=== PATIENT | male | born 2000 | race Caucasian/White ===

== ENCOUNTER 2023-02-19 15:42 | Inpatient (IN) | payer MEDICAID, OTHER ==
--- NOTE | 2023-02-19 16:09 | ED ---
Psych HPI - General Source: patient, family, RN notes reviewed <Alyse Cook - Last Filed: 02/19/23 16:06> <Shravan Soto - Last Filed: 02/20/23 00:30> - General Source: patient, family, RN notes reviewed Mode of arrival: ambulatory Limitations: no limitations <Annabel Michael - Last Filed: 02/20/23 01:05> - General Chief Complaint: Psychiatric Symptoms Stated Complaint: mental health Time Seen by Provider: 02/19/23 16:07 - History of Present Illness Initial Comments: Patient is a 22-year-old male presenting to the ER with chief complaint of mental health evaluation. Patient denies any current SI/HI. Patient denies any alcohol or drug use today. Patient denies any other complaints at this time. (Alyse Cook) This is a 22-year-old male who presents to the emergency department for psychiatric evaluation. Patient has been experiencing hallucinations and thinks that people are in his head and trying to talk to him through his phone and communicate via text message. His mother provides the majority of the inform ation due to the patient being uncooperative and trying to communicate with internal stimuli. His mom states that he has been going downhill for about a month. She notes that they were recently evicted and are now living with his aunt and uncle, who are going through a divorce. He has not been eating or sleeping over the last few days either. He stopped taking his medication in July of this year. He does currently follow with [facility]. Denies any suicidal or homicidal ideations. Also denies any substance use. (Annabel Michael) - Related Data Home Medications Medication Instructions Recorded Confirmed Melatonin 7 mg PO HS 02/19/23 02/19/23 Allergies Allergy/AdvReac Type Severity Reaction Status Date / Time No Known Allergies Allergy Verified 02/19/23 19:38 Review of Systems ROS Other: All systems not noted in ROS Statement are negative. <Alyse Cook - Last Filed: 02/19/23 16:06> ROS Other: All systems not noted in ROS Statement are negative. <Shravan Soto - Last Filed: 02/20/23 00:30> ROS Other: All systems not noted in ROS Statement are negative. <Annabel Michael - Last Filed: 02/20/23 01:05> ROS Statement: Those systems with pertinent positive or pertinent negative responses have been documented in the HPI. Past Medical History Past Medical History: Asthma History of Any Multi-Drug Resistant Organisms: None Reported Past Surgical History: No Surgical Hx Reported Past Psychological History: No Psychological Hx Reported Smoking Status: Never smoker Past Alcohol Use History: None Reported Past Drug Use History: None Reported <Alyse Cook - Last Filed: 02/19/23 16:06> General Exam <Alyse Cook - Last Filed: 02/19/23 16:06> Limitations: no limitations General appearance: alert, in no apparent distress Head exam: Present: atraumatic, normocephalic, normal inspection Respiratory exam: Present: normal lung sounds bilaterally. Absent: respiratory distress, wheezes, rales, rhonchi, stridor Cardiovascular Exam: Present: regular rate, normal rhythm, normal heart sounds. Absent: systolic murmur, diastolic murmur, rubs, gallop, clicks Neurological exam: Present: alert, oriented X3, CN II-XII intact Psychiatric exam: Absent: homicidal ideation, suicidal ideation Expanded Focused psych exam: Present: internal stimuli Skin exam: Present: warm, dry, intact, normal color. Absent: rash <Annabel Michael - Last Filed: 02/20/23 01:05> - General Exam Comments Initial Comments: Visual Physical Exam Vital signs reviewed General: Well-appearing, nontoxic, no acute distress. Head: Normocephalic, atraumatic Eyes: PERRLA, EOMI ENT: Airway patent Chest: Nonlabored breathing Skin: No visual rash, normal skin tone Neuro: Alert and oriented 3 Musculoskeletal: No gross abnormalities (Alyse Cook) Course Vital Signs 02/19/23 16:10 Temperature 98.2 F Pulse Rate 107 H Respiratory 18 Rate Blood Pressure 155/102 O2 Sat by Pulse 98 Oximetry Medical Decision Making <Alyse Cook - Last Filed: 02/19/23 16:06> <Shravan Soto - Last Filed: 02/20/23 00:30> <Annabel Michael - Last Filed: 02/20/23 01:05> - Medical Decision Making I performed the quick note portion of the exam. Electronically signed by Alyse Cook PA-C (Alyse Cook) Patient reevaluated by myself. Patient amiss to having racing thoughts and difficulty sleeping. Decreased oral intake. Patient is having hallucinations. Positive clinical certificate completed. (Shravan Soto) This is a 22-year-old male who presents to the emergency department for psychiatric evaluation. Was pt. sent in by a medical professional or institution? @ -No Did you speak to anyone other than the patient for history? @ -His mother provided the majority of the information. Did you review nursing and triage notes? @ -Yes, and I agree, it is accurate with regards to the patient's symptoms. Were old charts reviewed? @ -No Differential Diagnosis? @ -Differential Mental Health Depression, anxiety, bipolar, psychosis, schizophrenia, borderline personality, situational depression, adjustment disorder, behavioral disorder, brain tumor, malingering, substance abuse, encephalopathy, medication reaction, dementia, hypothyroidism, degenerative neurologic disorder, lupus.... This is not meant to be all-inclusive list EKG interpreted by me (3pts min.)? @ -Not obtained X-rays interpreted by me (1pt min.)? @ -Not obtained CT interpreted by me (1pt min.)? @ -Not obtained U/S interpreted by me (1pt. min.)? @ -Not obtained What testing was considered but not performed? (CT, X-rays, U/S, labs)? Why? @ -None What meds were considered but not given? Why? @ -None Did you discuss the management of the patient with other professionals? @ -Yes, Silva with [facility], who advised that the patient meets inpatient psychiatric admission criteria and will be admitted to for psychiatric management. Did you reconcile home meds? @ -No Was smoking cessation discussed for >3mins.? @ -No Was critical care preformed (if so, how long)? @ -No Were there social determinants of health that impacted care today? How? (Homelessness, low income, unemployed, alcoholism, drug addiction, transportation, low edu. Level, literacy, decrease access to med. care, correction, rehab)? @ -No Was there de-escalation of care discussed even if they declined? (Discuss DNR or withdrawal of care, Hospice)? @ -No What co-morbidities impacted this encounter? (DM, HTN, Smoking, COPD, CAD, Cancer, CVA, Hep., AIDS, mental health diagnosis, sleep apnea, morbid obesity)? @ -Mental health diagnosis Was patient admitted / discharged? @ -Admitted. Patient's BAT was 0.0 and he was cleared for [facility] evaluation. [facility] advised that the patient meets admission criteria due to the hallucinations and not eating or sleeping, and he will be admitted to at this facility. I am in agreement with this plan based on the patient's presentation. Patient admitted to on an involuntary basis. Patient was petitioned by his mother and clinical certificate was completed by ED attending, Dr. Soto. Undiagnosed new problem with uncertain prognosis? @ -None Drug Therapy requiring intensive monitoring for toxicity (Heparin, Nitro, Insulin, Cardizem)? @ -None Were any procedures done? @ -None Diagnosis/symptom? @ -Hallucinations, poor appetite, insomnia Acute, or Chronic, or Acute on Chronic? @ -Acute Uncomplicated (without systemic symptoms) or Complicated (systemic symptoms)? @ -Uncomplicated Side effects of treatment? @ -None Exacerbation, Progression, or Severe Exacerbation] @ -Not applicable Poses a threat to life or bodily function? @ -Yes This case was discussed in detail with the attending ED physician, Dr. Soto. Presentation, findings, and treatment plan discussed in detail as well. (Annabel Michael) - Lab Data Lab Results 02/19/23 Range/Units 23:13 SARS-CoV-2 (PCR) Not Detected (Not Detectd) Disposition <Alyse Cook - Last Filed: 02/19/23 16:06> Is patient prescribed a controlled substance at d/c from ED?: No <Shravan Soto - Last Filed: 02/20/23 00:30> <Annabel Michael - Last Filed: 02/20/23 01:05> Clinical Impression: Acute psychosis Disposition: TRANSFER TO PSYCH HOSP/UNIT
[2023-02-20] MEDS ORDERED: MAGNESIUM HYDROXIDE 2,400 MG/30 ML CUP PO PRN (00:02)
[2023-02-20] MEDS ORDERED: LORazepam 2 MG/ML INJ IM PRN (00:02)
[2023-02-20] MEDS ORDERED: HALOPERIDOL LACTATE 5 MG/ML 1 ML VIAL IM PRN (00:02)
[2023-02-20] MEDS ORDERED: MAG HYDROX/AL HYDROX/SIMETH 30 ML CUP PO PRN (00:02)
[2023-02-20] MEDS ORDERED: QUEtiapine 50 MG TAB PO PRN (00:07)
[2023-02-20] MEDS: haloperidoL 5 MG TAB PO PRN ×2 (01:05→22:10)
[2023-02-20] MEDS: LORazepam 1 MG TAB PO PRN (01:05)
[2023-02-20] MEDS ORDERED: PALIPERIDONE 3 MG TAB.ER.24 PO STA (11:07)
--- NOTE | 2023-02-20 11:19 | P.HP ---
Psychiatric H&P - . H&P Date: 02/20/23 History & Physical: Allergies Allergy/AdvReac Type Severity Reaction Status Date / Time No Known Allergies Allergy Verified 02/20/23 02:07 Vital Signs Temp 97.8 F 02/20/23 00:40 Pulse 113 H 02/20/23 00:40 Resp 18 02/20/23 00:40 BP 172/96 02/20/23 00:40 Pulse Ox 97 02/20/23 00:40 FiO2 Intake & Output 02/19/23 02/20/23 02/20/23 18:59 06:59 18:59 Weight 149.685 kg 138.2 kg Laboratory Last Values SARS-CoV-2 (PCR) Not Detected (Not Detectd) 02/19/23 23:13 02/20/23 08:58 IDENTIFYING DATA: Patient is a 22-year-old male, lives at home with his mother. HPI: Patient presented to the hospital ED on 02/19. As per ED note "This is a 22-year-old male who presents to the emergency department for psychiatric evaluation. Patient has been experiencing hallucinations and thinks that people are in his head and trying to talk to him through his phone and communicate via text message. His mother provides the majority of the information due to the patient being uncooperative and trying to communicate with internal stimuli." As per [facility] note "pt has been struggling with significant stressors at home lately. They were evicted recently and have moved in with pt's aunt and uncle. Per Cheryle, the couple that they are living with are currently going through a divorce and have been yelling; Cheryle reports that she has seen worsening of symptoms when pt's aunt and uncle argue likely as a result of poor home situation when pt was younger with his mother and father. pt then quit his job because he believed that he was unable to get to work despite there being no indication that he was unable to get transportation. Most of the money that pt had saved from this job he needed to spend on vet bills trying to get his dog better, but the dog ultimately . pt was "really bad" this past weekend, but Cheryle notes that pt has been going steadily downhill for about a month. pt has not been eating much; pt apparently has eaten a single chicken wing in the past 2 days. pt will apparently make a plate, but then forgets to eat and "then can't remember what hunger is." pt has also not slept very much; per Cheryle, pt has slept a total of maybe 10 hours since night." Information was given by patients mother, as patient was unable to interact with nurse." Upon interview today, patient was responding to internal stimuli was seen touching the ruiz and talking to himself, appears distracted, and not able to give answers at to who he was, the date, or where he was. Patient denies any suicidal or homicidal ideations intent or plan. He was biza rre, disorganized in thought process, poor hygiene and grooming. poor insight. Patient was petitioned by his mother for concerns of having "multiple personalities" and acting bizarre at home. At this time patient denies any auditory or visual hallucinations. Patient denies any flight of ideas racing thoughts and increased in goal directed behavior. UDS was negative. PAST PSYCHIATRIC HISTORY: Patient was last discharged from [facility] 06/20/21, on Abilify 20 mg daily for psychosis/mood stabilization, trazodone 100 mg daily at bedtime when necessary for insomnia/mood. Was going to [facility], last seen 02/2022, by STRATEGIC PLANNING ANALYST, was on abilify and prozasin. PMH:as per ED note ALLERGIES: as per EMR CHEMICAL DEPENDENCY HISTORY: as per HPI FAMILY PSYCHIATRIC/SUBSTANCE USE HISTORY: family history of depression and schizophrenia SOCIAL HISTORY: I could not gather any history from him MENTAL STATUS EXAM: General Appearance: Patient appears to be stated age is alert, reacting to internal stimuli, attempts to cooperate. Patient appears to have poor hygiene and grooming. Behavior: Patient is responding to internal stimuli, bizarre Speech: Patient's speech is hesitant and disorganized. Mood/Affect: Patient reports their mood is ok, patient is confused, affect is congruent and constricted. Suicidality/Homicidality: Patient denies having any homicidal ideation intent or plan. Denies any suicidal ideations intent or plan Perceptions: Patient responding to internal stimuli Though content/process: There is evidence of any delusional thought content and thought process disorganized/thought blocking Memory and concentration: AOX0, patient of poor attention span Judgment and insight: poor STRENGTHS/WEAKNESSES: strength is that patient is has family support Weakness is that patient has poor judgment/insight and is impulsive INTELLECT: below average IMPRESSIONS: schizophrenia PLAN: -Patient is admitted under involuntary status to [facility] for stabilization of psychiatric symptoms and safety. Patient has not signed adult voluntary form or medication consent and is placed in patient's chart. A second certification was completed and along with petition will be filed for court. -Medications : Will start patient on Invega 3mg qhs for psychosis, trazadone 50mg qhs prn for sleep -Ativan [and Haldol] PRN for agitation/aggression -Patient was informed of the risks, benefits and side effects of the medication and patient verbally consented to taking the medications. Patient signed med consent form and was placed in chart. -Internal Medicine consult to perform medical evaluation and physical. -NRT - nonsmoker -SW on board for discharge planning. Encourage patient to participate in groups to work on coping skills. Will await deferral and court date. 02/20/23 09:02 02/20/23 11:03 02/20/23 11:16
[2023-02-20] MEDS: BISOPROLOL-HCTZ 5-6.25 MG 1 EACH TAB PO SCH (13:24)
--- NOTE | 2023-02-20 13:54 | P.HPIM ---
History of Present Illness H&P Date: 02/20/23 Chief Complaint: Hallucinations This is a 22-year-old gentleman admitted with hallucinations, patient with history of schizophrenia and multiple other medical issues. Denies chest pain, palpitations or shortness of breath. Denies illicit drug use. Questioned about THC use, responded with "only through the phone ". Hypertensive mild tachycardia. Denies nausea vomiting or diarrhea. Denies chest pain. Denies any pain. Ice lightheadedness, dizziness or focal deficits. Labs pending. Review of Systems ROS Statement: Those systems with pertinent positive or pertinent negative responses have been documented in the HPI. ROS Other: All systems not noted in ROS Statement are negative. Past Medical History Past Medical History: Asthma History of Any Multi-Drug Resistant Organisms: None Reported Past Surgical History: No Surgical Hx Reported Past Psychological History: No Psychological Hx Reported Smoking Status: Never smoker Past Alcohol Use History: None Reported Past Drug Use History: None Reported Medications and Allergies Home Medications Medication Instructions Recorded Confirmed Type Melatonin 7 mg PO HS 02/19/23 02/19/23 History Allergies Allergy/AdvReac Type Severity Reaction Status Date / Time No Known Allergies Allergy Verified 02/20/23 02:07 Physical Exam Vitals: Vital Signs Temp Pulse Pulse Resp BP BP Pulse Ox 02/20/23 00:40 97.8 F 113 H 18 172/96 97 02/19/23 16:10 98.2 F 107 H 18 155/102 98 Intake and Output 02/19/23 02/20/23 02/20/23 22:59 06:59 14:59 Other: Weight 149.685 kg 138.2 kg GENERAL: Unkept in regards to bathing,nails,obese ,no acute distress. HEAD: Atraumatic, normocephalic. EYES: Pupils equal round and reactive to light, extraocular movements intact, sclera anicteric, conjunctiva are normal. ENT:nares patent, oropharynx clear without exudates. Moist mucous membranes. NECK: Normal range of motion, supple without lymphadenopathy or JVD, no thyromegaly LUNGS: Breath sounds clear to auscultation bilaterally and equal. No wheezes rales or rhonchi. HEART: Regular rate and rhythm without murmurs, rubs or gallops.S1S2 Normal ABDOMEN: Soft, nontender, normoactive bowel sounds. No guarding, no rebound. No masses appreciated. EXTREMITIES: No pitting or edema. No clubbing or cyanosis. NEUROLOGICAL: Cranial nerves II through XII grossly intact. Normal speech, normal gait. He is awake alert and oriented 2-3. PSYCH: Currently calm, cooperative ,sometimes speaking nonsense to answer questions. SKIN: Warm, Dry, normal turgor, no rashes noted. Assessment and Plan Assessment: Schizophrenia Hypertension, in a patient with family history of, not currently on any medications except for melatonin Morbid obesity, BMI 40 Plan: Continue on current medication regime ,monitoring and symptomatic treatment. Ziac ordered for hypertension. Close monitoring of blood pressures. Labs pending. PPI ordered for GI prophylaxis. The impression and plan of care has been dictated as directed. : I performed a history and examination of this patient, discussed the same with the dictator. I agree with the dictator's note ,documented as a scribe. Any additional findings or plans will be noted.
[2023-02-20] MEDS: PANTOPRAZOLE 40 MG TABLET PO SCH (14:50)
[2023-02-20] MEDS ORDERED: PALIPERIDONE 3 MG TAB.ER.24 PO SCH (21:00)
[2023-02-20] MEDS: traZODone HCL 50 MG TAB PO PRN (22:10)
[2023-02-21] MEDS: BISOPROLOL-HCTZ 5-6.25 MG 1 EACH TAB PO SCH (08:38)
[2023-02-21] MEDS: PANTOPRAZOLE 40 MG TABLET PO SCH (08:39)
[2023-02-21] MEDS: haloperidoL 5 MG TAB PO PRN ×2 (10:19→23:53)
[2023-02-21] MEDS: LORazepam 1 MG TAB PO PRN ×2 (10:19→23:52)
--- NOTE | 2023-02-21 11:25 | P.PN ---
Progress Note - Text Progress Note Date: 02/21/23 Interval History: Patient was seen wandering the hallways and was directable and agreeable to speak with news writer in the office. Patient is very bizarre during the interview, states that tomorrow he will be someone else, and that everyone is different people. and states "he feels nothing". Patient is very disorganized in his thought process. Patient appears to be responding to internal stimuli, looking around the room, and talking to himself about how everything is different. Patient states that he has "blackouts" and the voices in his head are real. At this time patient denies any suicidal or homical ideations, intent or plan. Patient endorses auditory, visual hallucinations and endorses paranoia and delusions. Patient denies any side effects from the medications and has been compliant with meds. MENTAL STATUS EXAM: General Appearance: Patient appears to be stated age is alert, reacting to internal stimuli, attempts to cooperate. Tall, disheveled, wearing a hospital gown. Has facial hair, and unkempt nails. Patient appears to have poor hygiene and grooming. Behavior: Patient is responding to internal stimuli, bizarre Speech: Patient's speech is hesitant, tangential and disorganized. Mood/Affect: Patient reports their mood is ok, patient is confused, affect is congruent and constricted. Suicidality/Homicidality: Patient denies having any homicidal ideation intent or plan. Denies any suicidal ideations intent or plan Perceptions: Patient responding to internal stimuli Though content/process: There is evidence of delusional thought content and thought process disorganized/thought blocking Memory and concentration: AOX3, patient of poor attention span Judgment and insight: poor IMPRESSIONS: schizophrenia PLAN: -Patient is admitted under involuntary status to [facility] for stabilization of psychiatric symptoms and safety. Patient has not signed adult voluntary form or medication consent and is placed in patient's chart. -Medications : Increase Invega 6mg qhs for psychosis, trazadone 50mg qhs prn for sleep -Ativan [and Haldol] PRN for agitation/aggression -NRT - nonsmoker -SW on board for discharge planning. Encourage patient to participate in groups to work on coping skills. Will await deferral and court date.
[2023-02-21 13:28] LABS: Basophils % (A) 1 %; Eosinophils # (A) 0.1 k/uL (0-0.7); Eosinophils % (A) 2 %; HCT 44.4 % (39.0-53.0); HGB 14.8 gm/dL (13.0-17.5); Lymphocytes % (A) 29 %; MCH 28.9 pg (25.0-35.0); MCHC 33.3 g/dL (31.0-37.0); MCV 86.9 fL (80.0-100.0); Mean Platelet Volume 7.8; Monocytes # (A) 0.4 k/uL (0-1.0); Monocytes % (A) 6 %; Neutrophils # (A) 4.3 k/uL (1.3-7.7); Neutrophils % (A) 61 %; Platelet Count 285 k/uL (150-450); RBC 5.11 m/uL (4.30-5.90); RDW 13.7 % (11.5-15.5); WBC 7.1 k/uL (3.8-10.6)
[2023-02-21 13:40] LABS: ALT 63 U/L (4-49); AST 35 U/L (17-59); African American GFR (CKD) >90 (>60 ml/min/1.73 sqM); Albumin 4.6 g/dL (3.5-5.0); Alkaline Phosphatase 74 U/L (38-126); Anion Gap 15 mmol/L; Blood Urea Nitrogen 13 mg/dL (9-20); Calcium 9.4 mg/dL (8.4-10.2); Carbon Dioxide 24 mmol/L (22-30); Chloride 101 mmol/L (98-107); Glucose 103 mg/dL (74-99); Non-African American GFR(CKD) >90 (>60 ml/min/1.73 sqM); Potassium 3.6 mmol/L (3.5-5.1); Sodium 140 mmol/L (137-145); Total Bilirubin 0.8 mg/dL (0.2-1.3); Total Protein 7.7 g/dL (6.3-8.2)
[2023-02-21] MEDS: IBUPROFEN 600 MG TAB PO PRN (17:54)
[2023-02-21] MEDS: PALIPERIDONE 6 MG TAB.ER.24 PO SCH (20:12)
[2023-02-21] MEDS: traZODone HCL 50 MG TAB PO PRN (20:48)
[2023-02-21 21:40] LABS: Chol/HDL Ratio 4.74 Ratio; LDL Cholesterol,Calculated 83.1 mg/dL (0.0-131.0); VLDL Calculation 18.72 mg/dL (5.00-40.00)
[2023-02-22] MEDS: BISOPROLOL-HCTZ 5-6.25 MG 1 EACH TAB PO SCH (08:06)
[2023-02-22] MEDS: PANTOPRAZOLE 40 MG TABLET PO SCH (08:06)
[2023-02-22] MEDS: IBUPROFEN 600 MG TAB PO PRN (08:06)
--- NOTE | 2023-02-22 09:47 | P.PN ---
Progress Note - Text Progress Note Date: 02/22/23 Interval History: Patient was seen wandering the hallways and was directable and agreeable to speak with copy writer in the office. Patient seems much clearer today, and states that 'everything is starting to make sense". Patient states that he slept well last night. Patient is going to groups. Patient continues to be very disorganized in his thought process. Patient states his mood and anxiety are 'completely fine'. Patient also states that he's seeing his alternate persona lities, and he need to undo what they did, talking about his past traumas and 'stuff'. At this time patient denies any suicidal or homical ideations, intent or plan. Patient endorses auditory, visual hallucinations and endorses paranoia and delusions. Patient denies any side effects from the medications and has been compliant with meds. MENTAL STATUS EXAM: General Appearance: Patient appears to be stated age is alert, reacting to internal stimuli, attempts to cooperate. Tall, overweigh, dressed in street clothes.. Has facial hair, and unkempt nails. Patient appears to have improving hygiene and grooming.mildly improving. Behavior: Patient is rambling, bizarre, pleasant. Speech: Patient's speech is hesitant, tangential and disorganized. Mood/Affect: Patient reports their mood is ok, patient is confused, affect is congruent and constricted. Suicidality/Homicidality: Patient denies having any homicidal ideation intent or plan. Denies any suicidal ideations intent or plan Perceptions: Patient responding to internal stimuli Though content/process: There is evidence of delusional thought content and thought process disorganized/thought blocking Memory and concentration: AOX3, patient of poor attention span Judgment and insight: poor, improving mildly IMPRESSIONS: schizophrenia PLAN: -Patient is admitted under involuntary status to [facility] for stabilization of psychiatric symptoms and safety. Patient has not signed adult voluntary form or medication consent and is placed in patient's chart. -Medications : increase Invega 6mg qhs + 3mg qam for psychosis, increase trazadone 100mg qhs scheduled for sleep -Ativan [and Haldol] PRN for agitation/aggression -NRT - nonsmoker -SW on board for discharge planning. Encourage patient to participate in groups to work on coping skills. Will await deferral and court date.
[2023-02-22] MEDS: PALIPERIDONE 6 MG TAB.ER.24 PO SCH (20:10)
[2023-02-22] MEDS ORDERED: traZODone HCL 100 MG TAB PO SCH (21:00)
[2023-02-22] MEDS: haloperidoL 5 MG TAB PO PRN (21:57)
[2023-02-22] MEDS: ALBUTEROL INHALER 60 PUFF/8 GM INHALER (MHU) INHALATION PRN (22:58)
[2023-02-23] MEDS: LORazepam 1 MG TAB PO PRN (02:42)
[2023-02-23] MEDS: IBUPROFEN 600 MG TAB PO PRN (02:42)
[2023-02-23] MEDS: PANTOPRAZOLE 40 MG TABLET PO SCH (08:42)
[2023-02-23] MEDS: BISOPROLOL-HCTZ 5-6.25 MG 1 EACH TAB PO SCH (08:43)
[2023-02-23] MEDS: haloperidoL 5 MG TAB PO PRN (08:45)
[2023-02-23] MEDS ORDERED: PALIPERIDONE 3 MG TAB.ER.24 PO SCH (09:00)
--- NOTE | 2023-02-23 11:15 | P.PN ---
Progress Note - Text Progress Note Date: 02/23/23 Interval History: Patient was seen wandering the hallways and was directable and agreeable to speak with manual writer in the office. Patient claims that he's doing better, and he's trying to make sense of his brain and mental health. Patient states that he needed extra medication to go to sleep last night, due to racing thoughts.. He states that he's seeing people "walk in and out" but is vague as to who. Patient continues to be bizarre, and his mood is 'null'. Patient is going to groups. Patient continues to be very disorganized in his thought process. Patient deferred with his civil rights attorney on 02/22/23. At this time patient denies any suicidal or homical ideations, intent or plan. Patient admits to auditory, visual hallucinations and endorses paranoia and delusions. Patient denies any side effects from the medications and has been compliant with meds. MENTAL STATUS EXAM: General Appearance: Patient appears to be stated age is alert, reacting to internal stimuli, attempts to cooperate. Tall, overweigh, dressed in street clothes.. Has facial hair, and unkempt nails. Patient appears to have improving hygiene and grooming.mildly improving. Behavior: Patient is rambling, bizarre, pleasant. Speech: Patient's speech is hesitant, tangential and disorganized. Mood/Affect: Patient reports their mood is null, patient is confused, affect is congruent and constricted. Suicidality/Homicidality: Patient denies having any homicidal ideation intent or plan. Denies any suicidal ideations intent or plan Perceptions: Patient is confused. Delusional Though content/process: There is evidence of delusional thought content and thought process disorganized/thought blocking Memory and concentration: AOX3, patient of poor attention span Judgment and insight: poor, improving mildly IMPRESSIONS: schizophrenia PLAN: -Patient is admitted under involuntary status to [facility] for stabilization of psychiatric symptoms and safety. Patient has not signed adult voluntary form or medication consent and is placed in patient's chart. -Medications : increase Invega 9mg qhs for psychosis, increase trazadone 150mg qhs scheduled for sleep -Ativan and Haldol PRN for agitation/aggression -NRT - nonsmoker -SW on board for discharge planning. Encourage patient to participate in groups to work on coping skills. Deferred with his civil rights attorney on 02/22/23.
[2023-02-23] MEDS: PALIPERIDONE 3 MG TAB.ER.24 PO SCH (20:41)
[2023-02-23] MEDS: traZODone HCL 50 MG TAB PO SCH (20:42)
[2023-02-23] MEDS ORDERED: traZODone HCL 100 MG TAB PO SCH (21:00)
[2023-02-24] MEDS: ACETAMINOPHEN TAB 325 MG TAB PO PRN (01:10)
[2023-02-24] MEDS: BISOPROLOL-HCTZ 5-6.25 MG 1 EACH TAB PO SCH (08:52)
[2023-02-24] MEDS: PANTOPRAZOLE 40 MG TABLET PO SCH (08:52)
[2023-02-24] MEDS: haloperidoL 5 MG TAB PO PRN ×2 (09:57→21:10)
--- NOTE | 2023-02-24 13:32 | P.PN ---
Progress Note - Text Progress Note Date: 02/24/23 Interval History: The patient was seen today as coverage for Dr. Oliva. Their chart was reviewed, and the case was discussed with the nursing staff. The patient reports poor sleep and fair appetite. The patient has not been participating in groups and other unit activities. The patient has been taking their psychiatric medications and denies side effects but he presents confused. He states that "I feel I am on the wrong medications". The patient was not able to engage in any productive conversation or provide any specific symptoms. He was talking about "I have multiple personality" but he didn't elaborate about that. The patient reports have been seeing people are not existing "I see this person in a orange hoody" The patient denies any suicidal or homicidal ideation. The patient was repeating words and not able to provide a specific answer for questions related to his mood or psychiatric symptoms. Mental Status Examination: Appearance: Appears stated age, fairly groomed, above average body built, and no specific features. Gait/ posture: slow gait, normal arm swinging, no abnormal movements. Attitude and Behavior: Engaged, cooperative, maintained eye contact during course of interview. Motor Activity: decreased psychomotor activity. Speech: Slow rate. None pressured. Mood: " not good Affect: flat. Thought form:incoherent. Association: loose Thought content: not Logical, seems responding to internal stimuli Perception: Denies any food safety auditor, reports visual hallucinations. Attention: impaired Orientation: Oriented to time, place, person, and situation. Insight & Judgment: limited Impulse control: impaired Assessment: schizophrenia Treatment plan: Continue inpatient psychiatric hospitalization. Patient has not signed adult voluntary form or medication consent and is placed in patient's chart. Implement the following precautions as recommended by the admitting psychiatrist: suicidal and elopement Consult the medical team immediately if any medical concerns arise. Educate the patient on the benefits of participating in groups and other unit activities and encourage active participation. Lab work ordered: none Medications: Continue Invega 9 mg qhs for psychosis, Continue trazadone 150mg qhs scheduled for sleep -Ativan and Haldol PRN for agitation/aggression -NRT - nonsmoker We will continue monitor the patient symptoms. If continues to have slow movement, will consider to decrease paliperidone Discharge planning is ongoing.
[2023-02-24] MEDS: PALIPERIDONE 3 MG TAB.ER.24 PO SCH (21:06)
[2023-02-24] MEDS: traZODone HCL 50 MG TAB PO SCH (21:06)
[2023-02-24] MEDS: LORazepam 1 MG TAB PO PRN (21:07)
[2023-02-25] MEDS: BISOPROLOL-HCTZ 5-6.25 MG 1 EACH TAB PO SCH (08:59)
[2023-02-25] MEDS: PANTOPRAZOLE 40 MG TABLET PO SCH (08:59)
--- NOTE | 2023-02-25 15:03 | P.PN ---
Progress Note - Text Progress Note Date: 02/25/23 Interval History: The patient was seen today as coverage for Dr. Oliva. Their chart was reviewed, and the case was discussed with the nursing staff. The patient was evaluated today while he was sitting in bed in his room and he continues to present confused with slow speech and delayed response. He needs multiple redirection to answer questions. Patient denies suicidal or homicidal ideation. He denies hallucinations, paranoid ideation, delusions. The patient continues taking his psychiatric medications and no side effects reported. No report sleep or appetite changes. The patient continues to repeat sentences and questions and needs multiple redirection and attempts to get him answering questions. No reports all tremors, akathisia, or muscle stiffness. Mental Status Examination: Appearance: Appears stated age, fairly groomed, above average body built, and no specific features. Gait/ posture: slow gait, normal arm swinging, no abnormal movements. Attitude and Behavior: Engaged, cooperative, maintained eye contact during course of interview. Motor Activity: decreased psychomotor activity. Speech: Slow rate. None pressured. Mood: " not good Affect: flat. Thought form:incoherent. Association: loose Thought content: not Logical, seems responding to internal stimuli Perception: Denies any it auditor, reports visual hallucinations. Attention: impaired Orientation: Oriented to time, place, person, and situation. Insight & Judgment: limited Impulse control: impaired Assessment: schizophrenia Treatment plan: Continue inpatient psychiatric hospitalization. Patient has not signed adult voluntary form or medication consent and is placed in patient's chart. Implement the following precautions as recommended by the admitting psychiatrist: suicidal and elopement Consult the medical team immediately if any medical concerns arise. Educate the patient on the benefits of participating in groups and other unit activities and encourage active participation. Lab work ordered: none Medications: Continue Invega 9 mg qhs for psychosis, Continue trazadone 150mg qhs scheduled for sleep -Ativan and Haldol PRN for agitation/aggression -NRT - nonsmoker Discharge planning is ongoing.
[2023-02-25] MEDS: haloperidoL 5 MG TAB PO PRN (15:45)
[2023-02-25] MEDS: traZODone HCL 50 MG TAB PO SCH (20:46)
[2023-02-25] MEDS: diphenhydrAMINE 25 MG CAP PO PRN (20:46)
[2023-02-25] MEDS: PALIPERIDONE 3 MG TAB.ER.24 PO SCH (20:46)
[2023-02-26] MEDS: BISOPROLOL-HCTZ 5-6.25 MG 1 EACH TAB PO SCH (08:53)
[2023-02-26] MEDS: PANTOPRAZOLE 40 MG TABLET PO SCH (08:53)
[2023-02-26] MEDS: haloperidoL 5 MG TAB PO PRN (08:59)
--- NOTE | 2023-02-26 12:02 | P.PN ---
Progress Note - Text Progress Note Date: 02/26/23 Interval History: Patient was seen wandering the hallways and was directable and agreeable to speak with entry writer in the office. Patient states he's feeling more calm and collected, however, he continues to be disorganized in his thought pattern. Patient continues to be bizarre, and his mood is "confused"'. Patient is going to groups. Patient continues to have flight of ideas, rambling, not making any sense. Patient deferred with his senior trial attorney on 02/22/23. At this time patient denies any suicidal or homical ideations, intent or plan. Patient admits to auditory, visual hallucinations and endorses paranoia and delusions. Patient denies any side effects from the medications and has been compliant with meds. MENTAL STATUS EXAM: General Appearance: Patient appears to be stated age is alert, reacting to internal stimuli, attempts to cooperate. Tall, overweight, dressed in street clothes.. Has facial hair, and unkempt nails. Patient appears to have improving hygiene and grooming.mildly improving. Behavior: Patient is rambling, bizarre, pleasant. Speech: Patient's speech is hesitant, tangential and disorganized. Mood/Affect: Patient reports their mood is confused, affect is congruent and constricted. Suicidality/Homicidality: Patient denies having any homicidal ideation intent or plan. Denies any suicidal ideations intent or plan Perceptions: Patient is confused. Delusional Though content/process: There is evidence of delusional thought content and thought process disorganized/thought blocking Memory and concentration: AOX3, patient of poor attention span Judgment and insight: poor, improving mildly IMPRESSIONS: schizophrenia PLAN: -Patient is admitted under involuntary status to [facility] for stabilization of psychiatric symptoms and safety. Patient has not signed adult voluntary form or medication consent and is placed in patient's chart. -Medications d/c Invega 9mg qhs for psychosis, increase trazadone 200mg qhs scheduled for sleep Add prolixin 2.5 bid for psychosis -Ativan and Haldol PRN for agitation/aggression -NRT - nonsmoker -SW on board for discharge planning. Encourage patient to participate in groups to work on coping skills. Deferred with his senior trial attorney on 02/22/23.
[2023-02-26] MEDS: diphenhydrAMINE 25 MG CAP PO PRN (20:33)
[2023-02-26] MEDS: ALBUTEROL INHALER 60 PUFF/8 GM INHALER (MHU) INHALATION PRN (20:36)
[2023-02-26] MEDS ORDERED: traZODone HCL 100 MG TAB PO SCH (21:00)
[2023-02-27] MEDS: LORazepam 1 MG TAB PO PRN (02:42)
[2023-02-27] MEDS: haloperidoL 5 MG TAB PO PRN (02:42)
[2023-02-27] MEDS: PANTOPRAZOLE 40 MG TABLET PO SCH (08:34)
[2023-02-27] MEDS: BISOPROLOL-HCTZ 5-6.25 MG 1 EACH TAB PO SCH (08:34)
--- NOTE | 2023-02-27 11:10 | P.PN ---
Progress Note - Text Progress Note Date: 02/27/23 Interval history: Patient was seen wandering the hallways and was directable and agreeable to speak with entry writer in the office. Patient states he's feels that he's 'keeping track of things better'. Patient shows interest in better caring for his hygiene, he's showering, and had a nurse help him cut his nails. He continues to be mildly disorganized in his thought pattern, this is slightly improving.. Patient appears to be slightly less bizarre, and his mood is "better". Patient is going to groups. Patient continues to ramble on about random things. Less delusional, however, he states that he has a hard time telling what is real and not in here, and he fears sleeping, because he said "someone else may take over his body" He states that he don't know what is reality and dream. Patient deferred with his sports attorney on 02/22/23. At this time patient denies any suicidal or homical ideations, intent or plan. Patient denies auditory, visual hallucinations and denies paranoia and delusions. Patient denies any side effects from the medications and has been compliant with meds. MENTAL STATUS EXAM: General Appearance: Patient appears to be stated age is alert, reacting to internal stimuli, attempts to cooperate. Tall, overweight, dressed in street clothes.. Has facial hair, and unkempt nails. Patient appears to have improving hygiene and grooming.mildly improving. Behavior: Patient is rambling, less bizarre, pleasant. mildly improving Speech: Patient's speech is bizarre, tangential. mildly improving Mood/Affect: Patient reports their mood is ok, affect is congruent and constricted. mildly improving Suicidality/Homicidality: Patient denies having any homicidal ideation intent or plan. Denies any suicidal ideations intent or plan Perceptions: Patient is confused. Delusional mildly improving Though content/process: There is evidence of delusional thought content and thought process disorganized/thought blocking mildly improving Memory and concentration: AOX3, patient of poor attention span mildly improving Judgment and insight: poor, improving mildly IMPRESSIONS: schizophrenia PLAN: -Patient is admitted under involuntary status to [facility] for stabilization of psychiatric symptoms and safety. Patient has not signed adult voluntary form or medication consent and is placed in patient's chart. -Medications: increase trazadone 300mg qhs scheduled for sleep. increase prolixin 5 bid for psychosis add melatonin 5 mg qhs for sleep. -Ativan and Haldol PRN for agitation/aggression -NRT - nonsmoker -SW on board for discharge planning. Encourage patient to participate in groups to work on coping skills. Deferred with his sports attorney on 02/22/23.
[2023-02-27] MEDS: ALBUTEROL INHALER 60 PUFF/8 GM INHALER (MHU) INHALATION PRN (18:04)
[2023-02-27] MEDS: diphenhydrAMINE 25 MG CAP PO PRN (20:32)
[2023-02-27] MEDS: traZODone HCL 100 MG TAB PO SCH (20:32)
[2023-02-27] MEDS: IBUPROFEN 600 MG TAB PO PRN (20:33)
[2023-02-27] MEDS ORDERED: MELATONIN 5 MG TABLET PO SCH (21:00)
[2023-02-28] MEDS: PANTOPRAZOLE 40 MG TABLET PO SCH (07:32)
[2023-02-28] MEDS: BISOPROLOL-HCTZ 5-6.25 MG 1 EACH TAB PO SCH (07:32)
--- NOTE | 2023-02-28 11:22 | P.PN ---
Progress Note - Text Progress Note Date: 02/28/23 Interval history: Patient was seen wandering the hallways and was directable and agreeable to speak with advertising copywriter in the office. Patient states he's doing 'good' today'. Patient continues to show interest in better caring for his hygiene, he's showering, and had a nurse help him cut his nails. He states that the medications are 'making him smile'. Patient appears more organized in his thought pattern. Patient is going to groups. not responding to internal stimuli today. Patient states he is sleeping well at night. States "his brain is empty, with no voices". Patient claims to have had episodes of blurry vision, possibly a side effect of prolixin. Will discontinue prolixin and replace with haldol. Patient deferred with his divorce attorney on 02/22/23. At this time patient denies any suicidal or homical ideations, intent or plan. Patient denies auditory, visual hallucinations and denies paranoia and delusions. Patient denies any side effects from the medications and has been compliant with meds. MENTAL STATUS EXAM: General Appearance: Patient appears to be stated age is alert, reacting to internal stimuli, attempts to cooperate. Tall, overweight, dressed in street clothes.. Has facial hair, and unkempt nails. Patient appears to have improving hygiene and grooming.mildly improving. Behavior: Patient is rambling, less bizarre, pleasant. mildly improving Speech: Patient's speech is fluent, nonpressured. mildly improving Mood/Affect: Patient reports their mood is ok, affect is congruent and constricted. mildly improving Suicidality/Homicidality: Patient denies having any homicidal ideation intent or plan. Denies any suicidal ideations intent or plan Perceptions: Patient is confused. Delusional mildly improving Though content/process: There is evidence of delusional thought content and thought process disorganized/thought blocking mildly improving Memory and concentration: AOX3, patient of poor attention span mildly improving Judgment and insight: poor, improving mildly IMPRESSIONS: schizophrenia PLAN: -Patient is admitted under involuntary status to [facility] for stabilization of psychiatric symptoms and safety. Patient has not signed adult voluntary form or medication consent and is placed in patient's chart. -Medications: trazadone 300mg qhs scheduled for sleep. d/c prolixin, add Haldol 5mg bid for psychosis, Add Cogentin 0.5mg bid for EPS symptoms, increase melatonin 10 mg qhs for sleep. -Ativan and Haldol PRN for agitation/aggression -NRT - nonsmoker -SW on board for discharge planning. Encourage patient to participate in groups to work on coping skills. Deferred with his divorce attorney on 02/22/23.
[2023-02-28] MEDS: BENZTROPINE MESYLATE 0.5 MG TAB PO SCH ×2 (11:34→20:39)
[2023-02-28] MEDS: ACETAMINOPHEN TAB 325 MG TAB PO PRN (11:34)
[2023-02-28] MEDS: haloperidoL 5 MG TAB PO PRN (12:09)
[2023-02-28] MEDS: MELATONIN 5 MG TABLET PO SCH (20:38)
[2023-02-28] MEDS: haloperidoL 5 MG TAB PO SCH (20:39)
[2023-02-28] MEDS: traZODone HCL 100 MG TAB PO SCH (20:39)
[2023-03-01] MEDS: BENZTROPINE MESYLATE 0.5 MG TAB PO SCH ×2 (08:11→20:43)
[2023-03-01] MEDS: haloperidoL 5 MG TAB PO SCH (08:11)
[2023-03-01] MEDS: PANTOPRAZOLE 40 MG TABLET PO SCH (08:11)
[2023-03-01] MEDS: BISOPROLOL-HCTZ 5-6.25 MG 1 EACH TAB PO SCH (08:11)
[2023-03-01] MEDS ORDERED: SALINE NASAL GEL 14.1 GM TUBE NASAL PRN (11:36)
--- NOTE | 2023-03-01 11:48 | P.PN ---
Progress Note - Text Progress Note Date: 03/01/23 Interval history: Patient was seen wandering the hallways and was directable and agreeable to evangelina stevens with repairer typewriter in the office. Patient states he's doing "pretty good". Patient still continues to have loose associations during the interview, however this is mildly improving. Patient states he don't remember much about coming into the hospital, and why he was brought here. Keeps referring to "the last time he was here", and regrets his behavior from past admission. Patient had questions about his petition and cert, which I answered questions for him. Patient appears more organized in his thought pattern. Patient states he don't think he needs to be on Haldol, because he's not hearing voices anymore, I explained to him he does need this medication, to help maintain his clearer thought pattern. Talked to patient about switching to a [facility] prior to discharge, patient agreeable. Patient is going to groups. not responding to internal stimuli today. Patient states he is sleeping well at night. At this time patient denies any suicidal or homical ideations, intent or plan. Patient denies auditory, visual hallucinations and denies paranoia and delusions. Patient denies any side effects from the medications and has been compliant with meds. MENTAL STATUS EXAM: General Appearance: Patient appears to be stated age, is alert, and attempts to cooperate. Tall, overweight, dressed in street clothes. Has facial hair,. Patient appears to have improving hygiene and grooming. Behavior: Patient is cooperative and appropriate, pleasant. improving Speech: Patient's speech is fluent, nonpressured. Mildly circumstantial mildly improving Mood/Affect: Patient reports their mood is improving mildly, affect is congruent and constricted. mildly improving Suicidality/Homicidality: Patient denies having any homicidal ideation intent or plan. Denies any suicidal ideations intent or plan Perceptions: Patient is less confused. less Delusional, not responding to internal stimuli, mildly improving Though content/process: There is no evidence of delusional thought content and thought process is disorganized and circumstantial mildly improving Memory and concentration: AOX3, patient of poor attention span mildly improving Judgment and insight: poor, improving mildly IMPRESSIONS: Schizophrenia PLAN: -Patient is admitted under involuntary status to [facility] for stabilization of psychiatric symptoms and safety. Patient has not signed adult voluntary form or medication consent and is placed in patient's chart. -Medications: trazadone 300mg qhs scheduled for sleep. Increase Haldol 6mg bid for psychosis, Cogentin 0.5mg bid for EPS symptoms, melatonin 10 mg qhs for sleep. Likely transistion to a [facility] for better compliance with meds over the weekend. add saline spray for nasal dryness prn -Ativan and Haldol PRN for agitation/aggression -NRT - nonsmoker -SW on board for discharge planning. Encourage patient to participate in groups to work on coping skills. Possibly d/c early next week if patient continues to improve psychiatrically and patient is transitioned onto long-acting injection to help ensure compliance. Deferred with his hearing impaired teacher on 02/22/23.
[2023-03-01 12:10] VITALS: BMI 41.3
[2023-03-01] MEDS: MELATONIN 5 MG TABLET PO SCH (20:42)
[2023-03-01] MEDS: traZODone HCL 100 MG TAB PO SCH (20:43)
[2023-03-02] MEDS: BISOPROLOL-HCTZ 5-6.25 MG 1 EACH TAB PO SCH (08:01)
[2023-03-02] MEDS: PANTOPRAZOLE 40 MG TABLET PO SCH (08:02)
[2023-03-02] MEDS: BENZTROPINE MESYLATE 0.5 MG TAB PO SCH ×2 (08:02→20:22)
--- NOTE | 2023-03-02 11:22 | P.PN ---
Progress Note - Text Progress Note Date: 03/02/23 Interval history: Patient was seen wandering the hallways and was directable and agreeable to evangelina stevens with technical publications writer in the office. Patient states he's doing "better". Patient states he's not so confused today. Patient appears to be keeping a list, to help keep his thoughts clear. Patient appears more organized in his thought pattern. Patient appears to be a mildly circumstantial in his speech today. he beleives that his diagnosis may be "DID". Talking about random topics regarding pinterest, and tictok however was more logical today. Talked to patient about switching to a [facility] starting this weekend, patient agreeable. Patient is going to groups. Is no longer responding to internal stimuli. Patient states he is sleeping well at night. Patient states is appetite is good. At this time patient denies any suicidal or homical ideations, intent or plan. Patient denies auditory, visual hallucinations and denies paranoia and delusions. Patient denies any side effects from the medications and has been compliant with meds. MENTAL STATUS EXAM: General Appearance: Patient appears to be stated age, is alert, and attempts to cooperate. Tall, overweight, dressed in street clothes. Has facial hair,. Patient appears to have improving hygiene and grooming. Behavior: Patient is cooperative and appropriate, pleasant. improving Speech: Patient's speech is fluent, nonpressured. Mildly circumstantial mildly improving Mood/Affect: Patient reports their mood is improving mildly, affect is congruent and constricted. mildly improving Suicidality/Homicidality: Patient denies having any homicidal ideation intent or plan. Denies any suicidal ideations intent or plan Perceptions: Patient is less confused. less Delusional, not responding to internal stimuli, mildly improving Though content/process: There is no evidence of delusional thought content and thought process is disorganized and circumstantial mildly improving Memory and concentration: AOX3, patient of poor attention span mildly improving Judgment and insight: chronically poor, improving IMPRESSIONS: Schizophrenia PLAN: -Patient is admitted under involuntary status to [facility] for stabilization of psychiatric symptoms and safety. Patient has not signed adult voluntary form or medication consent and is placed in patient's chart. -Medications: trazadone 300mg qhs scheduled for sleep. Haldol 6mg bid for psychosis, Cogentin 0.5mg bid for EPS symptoms, melatonin 10 mg qhs for sleep. Start Haldol D 100mg IM [facility] 03/03 Next dose due 03/16 -Ativan and Haldol PRN for agitation/aggression -NRT - nonsmoker -SW on board for discharge planning. Encourage patient to participate in groups to work on coping skills. Possibly d/c sunday vs sunday, if patient continues to improve psychiatrically and patient is transitioned onto long- acting injection to help ensure compliance. Deferred with his glass robot operator on 02/22/23.
[2023-03-02] MEDS: ACETAMINOPHEN TAB 325 MG TAB PO PRN (17:10)
[2023-03-02] MEDS: traZODone HCL 100 MG TAB PO SCH (20:22)
[2023-03-02] MEDS: MELATONIN 5 MG TABLET PO SCH (20:22)
[2023-03-03] MEDS: PANTOPRAZOLE 40 MG TABLET PO SCH (08:43)
[2023-03-03] MEDS: BENZTROPINE MESYLATE 0.5 MG TAB PO SCH ×2 (08:43→20:27)
[2023-03-03] MEDS: BISOPROLOL-HCTZ 5-6.25 MG 1 EACH TAB PO SCH (08:44)
--- NOTE | 2023-03-03 11:10 | P.PN ---
Progress Note - Text Progress Note Date: 03/03/23 Interval history: Patient was seen wandering the hallways and was directable and agreeable to evangelina stevens with underwriter in the office. patient states that he is doing a bit better today overall. he claims that he does not beleive he has schizophrenia, continues to have poor insight. he states that he is sleeping a bit better. he asked more questions about the medications. is hesitant today about getting the haldol shot. appears to be more clear in thoguht process today. Is no longer responding to internal stimuli. Patient states he is sleeping well at night. Patient states is appetite is good. At this time patient denies any suicidal or homical ideations, intent or plan. Patient denies auditory, visual hallucinations and denies paranoia and delusions. Patient denies any side effects from the medications and has been compliant with meds. MENTAL STATUS EXAM: General Appearance: Patient appears to be stated age, is alert, and attempts to cooperate. Tall, overweight, dressed in street clothes. Has facial hair,. Patient appears to have improving hygiene and grooming. Behavior: Patient is cooperative and appropriate, pleasant. improving Speech: Patient's speech is fluent, nonpressured. Mildly circumstantial mildly improving Mood/Affect: Patient reports their mood is improving mildly, affect is congruent and constricted. mildly improving Suicidality/Homicidality: Patient denies having any homicidal ideation intent or plan. Denies any suicidal ideations intent or plan Perceptions: Patient is less confused. less Delusional, not responding to internal stimuli, mildly improving Though content/process: There is no evidence of delusional thought content and thought process is circumstantial mildly improving Memory and concentration: AOX3, patient of poor attention span mildly improving Judgment and insight: chronically poor, improving IMPRESSIONS: Schizophrenia PLAN: -Patient is admitted under involuntary status to [facility] for stabilization of psychiatric symptoms and safety. Patient has not signed adult voluntary form or medication consent and is placed in patient's chart. -Medications: trazadone 300mg qhs scheduled for sleep. increase Haldol 7 mg bid for psychosis, Cogentin 0.5mg bid for EPS symptoms, melatonin 10 mg qhs for sleep. Haldol D 100mg IM [facility] 03/03 Next dose due 03/16 -Ativan and Haldol PRN for agitation/aggression -NRT - nonsmoker -SW on board for discharge planning. Encourage patient to participate in groups to work on coping skills. Possibly d/c sunday vs sunday, if patient continues to improve psychiatrically and patient is transitioned onto long- acting injection to help ensure compliance. Deferred with his tax associate attorney on 02/22/23.
[2023-03-03] MEDS ORDERED: HALOPERIDOL DECANOATE 100 MG/ML 1 ML VIAL IM SCH (12:00)
[2023-03-03] MEDS: ACETAMINOPHEN TAB 325 MG TAB PO PRN ×2 (14:55→21:05)
[2023-03-03] MEDS: haloperidoL 5 MG TAB PO SCH (20:27)
[2023-03-03] MEDS: MELATONIN 5 MG TABLET PO SCH (20:27)
[2023-03-03] MEDS: traZODone HCL 100 MG TAB PO SCH (20:28)
[2023-03-04] MEDS: PANTOPRAZOLE 40 MG TABLET PO SCH (08:05)
[2023-03-04] MEDS: BENZTROPINE MESYLATE 0.5 MG TAB PO SCH ×2 (08:05→20:41)
[2023-03-04] MEDS: BISOPROLOL-HCTZ 5-6.25 MG 1 EACH TAB PO SCH (08:05)
[2023-03-04] MEDS: haloperidoL 5 MG TAB PO SCH ×2 (08:05→20:41)
--- NOTE | 2023-03-04 11:48 | P.PN ---
Progress Note - Text Progress Note Date: 03/04/23 Interval history: Patient was seen wandering the hallways and was directable and agreeable to evangelina stevens with pattern chart writer in the office. patient states that he is doing okay today. He spoke about having a "weird dream". He states that he tolerated the long-acting injection well yesterday. He asked more questions about his medications. continues to have limited insight. he states that he is sleeping a bit better. Patient states he is sleeping well at night. Patient states is appetite is good. At this time patient denies any suicidal or homical ideations, intent or plan. Patient denies auditory, visual hallucinations and denies paranoia and delusions. Patient denies any side effects from the medications and has been compliant with meds. MENTAL STATUS EXAM: General Appearance: Patient appears to be stated age, is alert, and attempts to cooperate. Tall, overweight, dressed in street clothes. Has facial hair,. Patient appears to have improving hygiene and grooming. Behavior: Patient is cooperative and appropriate, pleasant. improving Speech: Patient's speech is fluent, nonpressured. Mildly circumstantial mildly improving Mood/Affect: Patient reports their mood is improving mildly, affect is congruent and constricted. mildly improving Suicidality/Homicidality: Patient denies having any homicidal ideation intent or plan. Denies any suicidal ideations intent or plan Perceptions: Patient is less confused. less Delusional, not responding to internal stimuli, mildly improving Though content/process: There is no evidence of delusional thought content and thought process is circumstantial mildly improving Memory and concentration: AOX3, patient of poor attention span mildly improving Judgment and insight: chronically limited, improving IMPRESSIONS: Schizophrenia PLAN: -Patient is admitted under involuntary status to [facility] for stabilization of psychiatric symptoms and safety. Patient has not signed adult voluntary form or medication consent and is placed in patient's chart. -Medications: trazadone 300mg qhs scheduled for sleep. Decrease Haldol 5 mg bid for psychosis and continue tapering down. Cogentin 0.5 mg bid for EPS symptoms, melatonin 10 mg qhs for sleep. Haldol D 100mg IM SUTHERLAND 03/03 Next dose due 03/16 -Ativan and Haldol PRN for agitation/aggression -NRT - nonsmoker -SW on board for discharge planning. Encourage patient to participate in groups to work on coping skills. Possibly d/c sunday vs sunday, if patient continues to improve psychiatrically and patient is transitioned onto long- acting injection to help ensure compliance. Deferred with his assistant district attorney on 02/22/23.
[2023-03-04] MEDS: ACETAMINOPHEN TAB 325 MG TAB PO PRN (14:27)
[2023-03-04] MEDS: LORazepam 1 MG TAB PO PRN (20:08)
[2023-03-04] MEDS: traZODone HCL 100 MG TAB PO SCH (20:41)
[2023-03-04] MEDS: MELATONIN 5 MG TABLET PO SCH (20:41)
[2023-03-05] MEDS: haloperidoL 5 MG TAB PO SCH ×2 (08:29→21:16)
[2023-03-05] MEDS: BENZTROPINE MESYLATE 0.5 MG TAB PO SCH ×2 (08:29→21:16)
[2023-03-05] MEDS: PANTOPRAZOLE 40 MG TABLET PO SCH (08:29)
[2023-03-05] MEDS: BISOPROLOL-HCTZ 5-6.25 MG 1 EACH TAB PO SCH (08:29)
[2023-03-05] MEDS: ALBUTEROL INHALER 60 PUFF/8 GM INHALER (MHU) INHALATION PRN ×2 (09:35→16:51)
[2023-03-05] MEDS: ACETAMINOPHEN TAB 325 MG TAB PO PRN (09:49)
--- NOTE | 2023-03-05 10:13 | P.PN ---
Progress Note - Text Progress Note Date: 03/05/23 Interval history: Patient was seen wandering the hallways and was directable and agreeable to spe ak with screen writer in the office. patient states that he is doing alot better. He states he feels he can think allot clearer now. He states that he is sleeping well now. Patient states is appetite is good. Patient states he's tolerating the SUTHERLAND well at this time. Patient complaining of headache today, told him he could ask for Tylenol or motrin to help relieve his symptoms. At this time patient denies any suicidal or homical ideations, intent or plan. Patient denies auditory, visual hallucinations and denies paranoia and delusions. Patient denies any side effects from the medications and has been compliant with meds. MENTAL STATUS EXAM: General Appearance: Patient appears to be stated age, is alert, and attempts to cooperate. Tall, overweight, dressed in street clothes. Has facial hair,. P atient appears to have improving hygiene and grooming. Behavior: Patient is cooperative and appropriate, pleasant. improving Speech: Patient's speech is fluent, nonpressured. Mood/Affect: Patient reports their mood is improving mildly, affect is congruent and constricted. improving Suicidality/Homicidality: Patient denies having any homicidal ideation intent or plan. Denies any suicidal ideations intent or plan Perceptions: Patient is less confused. less Delusional, not responding to internal stimuli, mildly improving Though content/process: There is no evidence of delusional thought content and thought process is circumstantial improving Memory and concentration: AOX3 Judgment and insight: chronically limited, improving IMPRESSIONS: Schizophrenia PLAN: -Patient is admitted under involuntary status to [facility] for stabilization of psychiatric symptoms and safety. Patient has not signed adult voluntary form or medication consent and is placed in patient's chart. -Medications: trazadone 300mg qhs scheduled for sleep. Decrease Haldol 2.5 mg bid for psychosis and continue tapering down. With tomorrow being the last dose. Cogentin 0.5 mg bid for EPS symptoms, melatonin 10 mg qhs for sleep. Haldol D 100mg IM S[place]HERLAND given on 03/03, Next dose due 03/16 -Ativan and Haldol PRN for agitation/aggression -NRT - nonsmoker -SW on board for discharge planning. Encourage patient to participate in groups to work on coping skills. Possibly d/c Sunday, if patient continues to improve psychiatrically. Deferred with his director of quality control on 02/22/23.
[2023-03-05] MEDS: IBUPROFEN 600 MG TAB PO PRN ×2 (12:05→21:23)
[2023-03-05] MEDS: traZODone HCL 100 MG TAB PO SCH (21:15)
[2023-03-05] MEDS: MELATONIN 5 MG TABLET PO SCH (21:16)
[2023-03-06] MEDS: PANTOPRAZOLE 40 MG TABLET PO SCH (07:54)
[2023-03-06] MEDS: BISOPROLOL-HCTZ 5-6.25 MG 1 EACH TAB PO SCH (07:54)
[2023-03-06] MEDS: BENZTROPINE MESYLATE 0.5 MG TAB PO SCH ×2 (07:55→21:04)
[2023-03-06] MEDS: haloperidoL 5 MG TAB PO SCH ×2 (07:55→21:04)
[2023-03-06] MEDS: IBUPROFEN 600 MG TAB PO PRN ×2 (10:21→17:10)
--- NOTE | 2023-03-06 11:46 | P.PN ---
Progress Note - Text Progress Note Date: 03/06/23 Interval history: Patient was seen wandering the hallways and was directable and agreeable to sp rodney with public relations writer in the office. Patient states he feels he's doing allot better today. He states that he is sleeping well now. Patient states is appetite is good. Patient not complaining of headache today. [facility] to mingle with peers, as groups have been limited. At this time patient denies any suicidal or homical ideations, intent or plan. Patient denies auditory, visual hallucinations and denies paranoia and delusions. Patient denies any side effects from the medications and has been compliant with meds. he continues to ask several questions about his medications. MENTAL STATUS EXAM: General Appearance: Patient appears to be stated age, is alert, and attempts to cooperate. Tall, overweight, dressed in street clothes. Has facial hair,. Patient appears to have improving hygiene and grooming. Behavior: Patient is cooperative and appropriate, pleasant. improving Speech: Patient's speech is fluent, nonpressured. Mood/Affect: Patient reports their mood is improving, affect is congruent improving Suicidality/Homicidality: Patient denies having any homicidal ideation intent or plan. Denies any suicidal ideations intent or plan Perceptions: Patient is no longer confused. not Delusional, not responding to internal stimuli,improving Though content/process: There is no evidence of delusional thought content and thought process is circumstantial improving Memory and concentration: AOX3 Judgment and insight: chronically limited, improving IMPRESSIONS: Schizophrenia PLAN: -Patient is admitted under involuntary status to [facility] for stabilization of ps ychiatric symptoms and safety. Patient has not signed adult voluntary form or medication consent and is placed in patient's chart. -Medications: trazadone 300mg qhs scheduled for sleep. d/c Haldol p.o. after tonight. Cogentin 0.5 mg bid for EPS symptoms, melatonin 10 mg qhs for sleep. Haldol D 100mg IM SUTHERLAND given on 03/03, Next dose due 03/16 -Ativan and Haldol PRN for agitation/aggression -NRT - nonsmoker -SW on board for discharge planning. Encourage patient to participate in groups to work on coping skills. d/c tomorrow, if patient continues to improve psychiatrically. Deferred with his associate attorney on 02/22/23.
[2023-03-06] MEDS: ACETAMINOPHEN TAB 325 MG TAB PO PRN (14:09)
[2023-03-06] MEDS: traZODone HCL 100 MG TAB PO SCH (21:05)
[2023-03-06] MEDS: MELATONIN 5 MG TABLET PO SCH (21:37)
[2023-03-07 07:33] VITALS: PULSE 77; RESP 14; TEMP 97.5
[2023-03-07] MEDS: BISOPROLOL-HCTZ 5-6.25 MG 1 EACH TAB PO SCH (08:22)
[2023-03-07] MEDS: BENZTROPINE MESYLATE 0.5 MG TAB PO SCH (08:23)
[2023-03-07] MEDS: PANTOPRAZOLE 40 MG TABLET PO SCH (08:23)
[2023-03-07] MEDS: ACETAMINOPHEN TAB 325 MG TAB PO PRN (08:35)
[2023-03-07 08:55] VITALS: BP 131/98
[2023-03-07] MEDS ORDERED: HYDROCORTISONE 2.5% RECTAL CREAM 30 GM TUBE RECTAL PRN (09:54)
[2023-03-07] MEDS ORDERED: SENNOSIDES-DOCUSATE SODIUM 1 EACH TAB PO SCH (10:00)
--- NOTE | 2023-03-07 10:30 | P.DS ---
Providers Date of admission: 02/19/23 23:54 Expected date of discharge: 03/07/23 Attending physician: Vidal Oliva MD Consults: 02/20/23 00:02 Consult Physician Routine Consulting Provider: Robert Healy Jr Consult Reason/Comments: H&P and medical Do you want consulting provider notified?: Yes, Notify in am Primary care physician: Robert Healy - Discharge Diagnosis(es) (1) Schizophrenia Current Visit: Yes Status: Acute Priority: High Hospital Course: Admission HPI: Admission note was completed by underwriter mortgage loan "Patient presented to the hospital ED on 02/19. As per ED note "This is a 22-year-old male who presents to the emergency department for psychiatric evaluation. Patient has been experiencing hallucinations and thinks that people are in his head and trying to talk to him through his phone and communicate via text message. His mother provides the majority of the information due to the patient being uncooperative and trying to communicate with internal stimuli." As per EPS note "pt has been struggling with significant stressors at home lately. They were evicted recently and have moved in with pt's aunt and uncle. Per Cheryle, the couple that they are living with are currently going through a divorce and have been yelling; Cheryle reports that she has seen worsening of symptoms when pt's aunt and uncle argue likely as a result of poor home situation when pt was younger with his mother and father. pt then quit his job because he believed that he was unable to get to work despite there being no indication that he was unable to get transportation. Most of the money that pt had saved from this job he needed to spend on vet bills trying to get his dog better, but the dog ultimately . pt was "really bad" this past weekend, but Cheryle notes that pt has been going steadily downhill for about a month. pt has not been eating much; pt apparently has eaten a single chicken wing in the past 2 days. pt will apparently make a plate, but then forgets to eat and "then can't remember what hunger is." pt has also not slept very much; per Cheryle, pt has slept a total of maybe 10 hours since night." Information was given by patients mother, as patient was unable to interact with nurse." Upon interview today, patient was responding to internal stimuli was seen touching the ruiz and talking to himself, appears distracted, and not able to give answers at to who he was, the date, or where he was. Patient denies any suicidal or homicidal ideations intent or plan. He was bizarre, disorganized in thought process, poor hygiene and grooming. poor insight. Patient was petitioned by his mother for concerns of having "multiple personalities" and acting bizarre at home. At this time patient denies any auditory or visual hallucinations. Patient denies any flight of ideas racing thoughts and increased in goal directed behavior. UDS was negative." Hospital course: Upon admission to the unit patient was admitted involuntarily on a petition and certificate and a second certificate was completed and faxed with the courts. Patient ended up signing a deferral with the county attorney and agreeing to treatment. Patient was initially fairly psychotic, bizarre and responding to internal stimuli however with primary treatment he eventually got along well with other patients on the unit and followed unit protocol. Patient was compliant with the medications and denied any side effects throughout hospital course. Patient was started on paliperidone however this did not help his psychosis. Patient was then transitioned onto Prolixin which also he did not tolerate well and had side effects from. Patient was at that point transition to Haldol and tolerated much better, was up to a total dose of 12 mg daily for psychosis. Patient was transitioned onto Haldol D IM 100 mg, given dose on 03/03 and will be due in every 2 weeks on 03/16 at [facility]. Patient was also started on Cogentin 0.5 mg twice a day for EPS prophylaxis, melatonin 10 mg daily at bedtime for sleep, trazodone 300 mg daily at bedtime for sleep/mood. Patient spoke of his stressors and engaged in therapy both group and individual. Patient was also seen by medical team for history and physical exam. Throughout the course of the hospitalization patient gradually improved with regards to mood, anxiety, psychosis, delusions, sleep and returned back to their baseline level of functioning. On the day of discharge patient denied any suicidal or homicidal ideations intent or plan denied any auditory or visual hallucinations. Patient endorsed wanting to live for his health and family. The patient denied any access to guns or weapons. Patient denied any paranoia and did not endorse any delusions. Patient does not have a significant history of substance abuse and was counseled on abstaining from all substances including alcohol and marijuana. Patient was also counseled on the medications and need for regular compliance and was encouraged to follow-up with their outpatient appointment for mental health and also for primary care. Prior to discharge a family meeting will be arranged by licensed clinical social worker to answer any questions and ensure safety upon discharge. Mental status exam: General Appearance: Patient appears to be overweight, stated age is alert, pleasant, and cooperative. Patient is in no acute distress and has improved hygiene and grooming Behavior: Patient is calmly seated without any agitated behavior. Speech: Patient's speech is fluent and nonpressured. Mood/Affect: Patient reports their mood is "better", affect is congruent and euthymic. Suicidality/Homicidality: Patient denies having any suicidal or homicidal ideation intent or plan. Perceptions: Patient denies any auditory or visual hallucinations. Though content/process: There is no evidence of any delusional thought content and thought process is linear and goal-directed. more future oriented Memory and concentration: AOX3, grossly intact for the purposes of this session. Can spell "WORLD" backwards correctly. Judgment and insight: Chronically limited however has improved with guarded prognosis Impression: schizophrenia Plan: -Continue with discharge today as patient has improved and stabilized psychiatrically and is not currently an imminent threat to himself and/or others. Patient will remain at chronically elevated risk for harm to self and/or others due to his impulsivity. -Continue medications: Trazodone 300 mg daily at bedtime for sleep/mood, Haldol by mouth was discontinued. She was transitioned onto Haldol D1 100 mg IM on 03/03, next dose will be doing every 2 weeks [facility] on 03/16. Melatonin 10 mg daily at bedtime for sleep, Cogentin 0.5 mg twice a day for EPS prophylaxis -Patient was counseled on the need for medication compliance and appropriate follow-up at mental health and also primary care for medical issues. Patient verbalized understanding and agreed. -Social work to arrange for and conduct family meeting to ensure safety upon discharge and answer any questions/concerns. Social work also to arrange for patients follow up appointments with [facility] for psychiatric care along with follow up with primary care provider. -Patient counseled on abstaining from recreational drugs and marijuana and alcohol. Was informed/educated on the adverse effects on their physical and mental health. Patient verbally agreed and understood. -Patient was instructed to return to the hospital or seek immediate medical care if their psychiatric or medical symptoms do worsen or reoccur. Allergies Allergy/AdvReac Type Severity Reaction Status Date / Time No Known Allergies Allergy Verified 02/20/23 02:07 Laboratory Results WBC 7.1 k/uL (3.8-10.6) 02/21/23 12:23 RBC 5.11 m/uL (4.30-5.90) 02/21/23 12:23 Hgb 14.8 gm/dL (13.0-17.5) 02/21/23 12:23 Hct 44.4 % (39.0-53.0) 02/21/23 12:23 MCV 86.9 fL (80.0-100.0) 02/21/23 12:23 MCH 28.9 pg (25.0-35.0) 02/21/23 12:23 MCHC 33.3 g/dL (31.0-37.0) 02/21/23 12:23 RDW 13.7 % (11.5-15.5) 02/21/23 12:23 Plt Count 285 k/uL (150-450) 02/21/23 12:23 MPV 7.8 02/21/23 12:23 Neutrophils % 61 % 02/21/23 12:23 Lymphocytes % 29 % 02/21/23 12:23 Monocytes % 6 % 02/21/23 12:23 Eosinophils % 2 % 02/21/23 12:23 Basophils % 1 % 02/21/23 12:23 Neutrophils # 4.3 k/uL (1.3-7.7) 02/21/23 12:23 Lymphocytes # 2.0 k/uL (1.0-4.8) 02/21/23 12:23 Monocytes # 0.4 k/uL (0-1.0) 02/21/23 12:23 Eosinophils # 0.1 k/uL (0-0.7) 02/21/23 12:23 Basophils # 0.0 k/uL (0-0.2) 02/21/23 12:23 Sodium 140 mmol/L (137-145) 02/21/23 12:23 Potassium 3.6 mmol/L (3.5-5.1) 02/21/23 12:23 Chloride 101 mmol/L (98-107) 02/21/23 12:23 Carbon Dioxide 24 mmol/L (22-30) 02/21/23 12:23 Anion Gap 15 mmol/L 02/21/23 12:23 BUN 13 mg/dL (9-20) 02/21/23 12:23 Creatinine 0.72 mg/dL (0.66-1.25) 02/21/23 12:23 Est GFR (CKD-EPI)AfAm >90 (>60 ml/min/1.73 sqM) 02/21/23 12: Est GFR (CKD-EPI)NonAf >90 (>60 ml/min/1.73 sqM) 02/21/23 12: Glucose 103 mg/dL (74-99) H 02/21/23 12: Estimated Ave Glu mg/dL 94 mg/dL 02/21/23 12: Hemoglobin A1c 4.9 % (<=6.0) 02/21/23 12:23 Calcium 9.4 mg/dL (8.4-10.2) 02/21/23 12:23 Total Bilirubin 0.8 mg/dL (0.2-1.3) 02/21/23 12:23 AST 35 U/L (17-59) 02/21/23 12:23 ALT 63 U/L (4-49) H 02/21/23 12:23 Alkaline Phosphatase 74 U/L (38-126) 02/21/23 12:23 Total Protein 7.7 g/dL (6.3-8.2) 02/21/23 12:23 Albumin 4.6 g/dL (3.5-5.0) 02/21/23 12:23 Triglycerides 93.60 mg/dL (0.00-149.00) 02/21/23 12:23 Cholesterol 129.00 mg/dL (0.00-200.00) 02/21/23 12:23 LDL Cholesterol, Calc 83.1 mg/dL (0.0-131.0) 02/21/23 12:23 VLDL Cholesterol, Calc 18.72 mg/dL (5.00-40.00) 02/21/23 12:23 HDL Cholesterol 27.20 mg/dL (40.00-60.00) L 02/21/23 12:23 Cholesterol/HDL Ratio 4.74 Ratio 02/21/23 12:23 TSH 2.780 mIU/L (0.465-4.680) 02/21/23 12:23 SARS-CoV-2 (PCR) Not Detected (Not Detectd) 03/06/23 19:51 Vital Signs Temp 97.5 F L 03/07/23 07:04 Pulse 77 03/07/23 07:04 Resp 14 03/07/23 07:04 BP 131/98 03/07/23 08:33 Pulse Ox 97 03/06/23 14:11 FiO2 Patient Condition at Discharge: Stable Plan - Discharge Summary Discharge Rx Participant: No New Discharge Prescriptions: New traZODone HCL [Desyrel] 300 mg PO HS 30 Days #90 tab Bisoprolol-Hctz 5-6.25 mg [Ziac 5-6.25 MG] 1 each PO DAILY 30 Days #30 tab Saline Nasal Gel [[place] Nasal Gel] 1 applic NASAL Q6HR PRN each PRN Reason: Dry Nasal Passages Benztropine Mesylate [Cogentin] 0.5 mg PO BID 30 Days #60 tab Haloperidol Decanoate [Haldol D] 100 mg IM Q14D #1 each Melatonin 10 mg PO HS 30 Days #60 tab Pantoprazole [Protonix] 40 mg PO AC-BRKFST 30 Days #30 tab Sennosides-Docusate Sodium [Senokot-S] 1 tab PO DAILY 30 Days #30 tablet Albuterol Inhaler [Ventolin Hfa Inhaler] 2 puff INHALATION RT-QID PRN #1 each PRN Reason: Shortness Of Breath Or Wheezing Discontinued Melatonin 7 mg PO HS Discharge Medication List Albuterol Inhaler [Ventolin Hfa Inhaler] 2 puff INHALATION RT-QID PRN #1 each 03/07/23 [Rx] Benztropine Mesylate [Cogentin] 0.5 mg PO BID 30 Days #60 tab 03/07/23 [Rx] Bisoprolol-Hctz 5-6.25 mg [Ziac 5-6.25 MG] 1 each PO DAILY 30 Days #30 tab 03/07/23 [Rx] Haloperidol Decanoate [Haldol D] 100 mg IM Q14D #1 each 12/20/23 [Rx] Melatonin 10 mg PO HS 30 Days #60 tab 03/07/23 [Rx] Pantoprazole [Protonix] 40 mg PO AC-BRKFST 30 Days #30 tab 03/07/23 [Rx] Saline Nasal Gel [[place] Nasal Gel] 1 applic NASAL Q6HR PRN each 03/07/23 [Rx] Sennosides-Docusate Sodium [Senokot-S] 1 tab PO DAILY 30 Days #30 tablet [Rx] traZODone HCL [Desyrel] 300 mg PO HS 30 Days #90 tab 03/07/23 [Rx] Follow up Appointment(s)/Referral(s): [facility] [Outside] - 03/09/23 11:30 am (03-09-23 @ 11:30 with Kriss/ 03-29-22 [address] Hawkins ) Robert Healy Jr, DO [Primary Care Provider] - 1-2 days Patient Instructions/Handouts: Schizophrenia (DC), Social Distancing Guidelines for COVID-19 (DC) Activity/Diet/Wound Care/Special Instructions: Avoid the use of street drugs and alcohol. Take all medications as prescribed. When you are in need of refills on your medications, please contact your medical provider and/or outpatient psychiatrist/provider to have this done. Please go to your scheduled outpatient appointment for aftercare treatment. If symptoms return or become worse, call the crisis line at and/or go to the nearest emergency room for evaluation. National Suicide Hotline 978. Discharge Disposition: HOME SELF-CARE
== END 2023-03-07 11:15 | disposition home or self-care (01) | DRG 750 ==
LOC: EC 15:42 → 3MHU 23:54
PROVIDERS: ADMIT Psychiatry & Neurology Psychiatry; ATTEND Psychiatry & Neurology Psychiatry
DX: F20.9 Schizophrenia, unspecified (principal); F44.81 Dissociative identity disorder; G47.00 Insomnia, unspecified; I10 Essential (primary) hypertension; R00.0 Tachycardia, unspecified; J45.909 Unspecified asthma, uncomplicated; Z68.41 Body mass index [BMI] 40.0-44.9, adult; E66.01 Morbid (severe) obesity due to excess calories; Z81.8 Family history of other mental and behavioral disorders; Z71.3 Dietary counseling and surveillance; Z11.52 Encounter for screening for COVID-19; Z28.310 Unvaccinated for COVID-19; Z28.21 Immunization not carried out because of patient refusal; Z63.5 Disruption of family by separation and divorce
CPT/HCPCS: 80053; 80061; 82075; 83036; 84443; 85025; 87635; 99285

== ENCOUNTER 2023-05-04 13:23 | Emergency (ER) | payer OTHER ==
--- NOTE | 2023-05-04 13:49 | ED ---
General Adult HPI - General Source: patient, RN notes reviewed Mode of arrival: ambulatory Limitations: no limitations <Annabel Michael - Last Filed: 05/04/23 14:02> - General Source: RN notes reviewed, old records reviewed Mode of arrival: ambulatory Limitations: no limitations - History of Present Illness -: hour(s) Radiation: non-radiation Quality: sharp Consistency: constant, intermittent Worsens with: none Associated Symptoms: denies other symptoms Treatments Prior to Arrival: none <Douglas Piedra - Last Filed: 05/13/23 18:48> - General Chief complaint: Urogenital Stated complaint: urogenital Time Seen by Provider: 05/04/23 13:48 - History of Present Illness Initial comments: This is a 23 year old male who presents to the emergency department for priapism. States that this started at 8am. (Annabel Michael) This is a 23-year-old male to ER for evaluation of priapism, patient has had an erection for around 6 hours now, he woke up with his erections today and it has been persistent causing him now severe pain (Douglas Piedra) - Related Data Previous Rx's Medication Instructions Recorded Albuterol Inhaler [Ventolin Hfa 2 puff INHALATION RT-QID PRN #1 03/07/23 Inhaler] each Benztropine Mesylate [Cogentin] 0.5 mg PO BID 30 Days #60 tab 03/07/23 Bisoprolol-Hctz 5-6.25 mg [Ziac 1 each PO DAILY 30 Days #30 tab 03/07/23 5-6.25 MG] Haloperidol Decanoate [Haldol D] 100 mg IM Q14D #1 each 03/07/23 Melatonin 10 mg PO HS 30 Days #60 tab 03/07/23 Pantoprazole [Protonix] 40 mg PO AC-BRKFST 30 Days #30 tab 03/07/23 Saline Nasal Gel [[place] Nasal Gel] 1 applic NASAL Q6HR PRN each 03/07/23 Sennosides-Docusate Sodium 1 tab PO DAILY 30 Days #30 tablet 03/07/23 [Senokot-S] traZODone HCL [Desyrel] 300 mg PO HS 30 Days #90 tab 12/20/23 Allergies Allergy/AdvReac Type Severity Reaction Status Date / Time No Known Allergies Allergy Verified 05/04/23 14:04 Review of Systems ROS Other: All systems not noted in ROS Statement are negative. <ComforttiaAnnabel - Last Filed: 05/04/23 14:02> ROS Other: All systems not noted in ROS Statement are negative. <Douglas Piedra - Last Filed: 05/13/23 18:48> ROS Statement: Those systems with pertinent positive or pertinent negative responses have been documented in the HPI. Past Medical History Past Medical History: Asthma History of Any Multi-Drug Resistant Organisms: None Reported Past Surgical History: No Surgical Hx Reported Past Anesthesia/Blood Transfusion Reactions: No Reported Reaction Past Psychological History: Panic Disorder, Schizophrenia Smoking Status: Never smoker Past Alcohol Use History: Rare Past Drug Use History: None Reported - Past Family History Mother History Unknown: Yes <Annabel Michael - Last Filed: 05/04/23 14:02> General Exam <Annabel Michael - Last Filed: 05/04/23 14:02> General appearance: alert, in no apparent distress Head exam: Present: atraumatic, normocephalic, normal inspection Eye exam: Present: normal appearance, PERRL, EOMI. Absent: scleral icterus, conjunctival injection, periorbital swelling ENT exam: Present: normal exam, mucous membranes moist Neck exam: Present: normal inspection. Absent: tenderness, meningismus, lymphadenopathy Respiratory exam: Present: normal lung sounds bilaterally. Absent: respiratory distress, wheezes, rales, rhonchi, stridor Cardiovascular Exam: Present: regular rate, normal rhythm, normal heart sounds. Absent: systolic murmur, diastolic murmur, rubs, gallop, clicks GI/Abdominal exam: Present: soft, normal bowel sounds. Absent: distended, tenderness, guarding, rebound, rigid Extremities exam: Present: normal inspection, full ROM, normal capillary refill. Absent: tenderness, pedal edema, joint swelling, calf tenderness Back exam: Present: normal inspection Neurological exam: Present: alert, oriented X3, CN II-XII intact Psychiatric exam: Present: normal affect, normal mood Skin exam: Present: warm, dry, intact, normal color. Absent: rash <Douglas Piedra - Last Filed: 05/13/23 18:48> - General Exam Comments Initial Comments: Visual Physical Exam Vital signs reviewed General: Well-appearing, nontoxic, no acute distress. Head: Normocephalic, atraumatic Eyes: PERRLA, EOMI ENT: Airway patent Chest: Nonlabored breathing Skin: No visual rash, normal skin tone Neuro: Alert and oriented 3 Musculoskeletal: No gross abnormalities (Annabel Michael) Course <Douglas Piedra - Last Filed: 05/13/23 18:48> Vital Signs 05/04/23 05/04/23 05/04/23 14:00 15:46 19:33 Temperature 97.6 F 97.8 F Pulse Rate 88 99 96 Respiratory 16 16 16 Rate Blood Pressure 113/76 135/84 134/86 O2 Sat by Pulse 100 96 96 Oximetry - Reevaluation(s) Reevaluation #1: Record records are reviewed (Douglas Piedra) Reevaluation #2: Patient symptoms are unchanged (Douglas Piedra) Reevaluation #3: Patient informed of results and questions answered (Douglas Piedra) Reevaluation #4: Was pt. sent in by a medical professional or institution (, PA, ANALYST BUSINESS ANALYSIS, urgent care, hospital, or longterm...) When possible be specific @ -no Did you speak to anyone other than the patient for history (EMS, parent, family, police, friend...)? What history was obtained from this source @ -no Did you review nursing and triage notes (agree or disagree)? Why? @ -agree Are old charts reviewed (outside hosp., previous admission, EMS record, old EKG, old radiological studies, urgent care reports/EKG's, longterm records)? Report findings @ -yes Differential Diagnosis (chest pain, altered mental status, abdominal pain women, abdominal pain men, vaginal bleeding, weakness, fever, dyspnea, syncope, headache, dizziness, GI bleed, back pain, seizure, CVA, palpatations, mental health, musculoskeletal)? @ -prior EKG interpreted by me (3pts min.). @ -yes X-rays interpreted by me (1pt min.). @ -yes negative for acute disease CT interpreted by me (1pt min.). @ -no U/S interpreted by me (1pt. min.). @ -no What testing was considered but not performed or refused? (CT, X-rays, U/S, labs)? Why? @ -none What meds were considered but not given or refused? Why? @ -none Did you discuss the management of the patient with other professionals (professionals i.e. , PA, ANALYST BUSINESS ANALYSIS, lab, RT, psych nurse, social service manager, mixer wet pour, teacher, postal sorting officer, case folder)? Give summary @ -no Was smoking cessation discussed for >3mins.? @ -no Was critical care preformed (if so, how long)? @ -no Were there social determinants of health that impacted care today? How? (Homelessness, low income, unemployed, alcoholism, drug addiction, transportation, low edu. Level, literacy, decrease access to med. care, [place] [facility], rehab)? @ -none Was there de-escalation of care discussed even if they declined (Discuss DNR or withdrawal of care, Hospice)? DNR status @ -no What co-morbidities impacted this encounter? (DM, HTN, Smoking, COPD, CAD, Cancer, CVA, ARF, Chemo, Hep., AIDS, mental health diagnosis, sleep apnea, morbid obesity)? @ -none Was patient admitted / discharged? Hospital course, mention meds given and route, prescriptions, significant lab abnormalities, going to OR and other pertinent info. @ - Undiagnosed new problem with uncertain prognosis? @ -no Drug Therapy requiring intensive monitoring for toxicity (Heparin, Nitro, Insulin, Cardizem)? @ -no Were any procedures done? @ -no Diagnosis/symptom? @ - Acute, or Chronic, or Acute on Chronic? @ -Acute Uncomplicated (without systemic symptoms) or Complicated (systemic symptoms)? @ -Complicated Side effects of treatment? @ -no Exacerbation, Progression, or Severe Exacerbation? @ -exacerbation Poses a threat to life or bodily function? How? (Chest pain, [place], [place], pneumonia, PE, COPD, DKA, ARF, appy, cholecystitis, CVA, Diverticulitis, Homicidal, Suicidal, threat to staff... and all critical care pts) @ -yes (Douglas Piedra) Procedures - Nerve Block Consent Obtained: verbal consent Local Anesthetic Used: Lidocaine 1% Side: left, right Nerve Blocks: other (Penile block) Procedure Successful: Yes Complications: none Patient Tolerated Procedure: well <Douglas Piedra - Last Filed: 05/13/23 18:48> - Procedures Initial comment: Priapism Achieved detumescence Primarily through aspiration and injection of blood phenylephrine (Douglas Piedra) Medical Decision Making <Annabel Michael - Last Filed: 05/04/23 14:02> <Douglas Piedra - Last Filed: 05/13/23 18:48> - Medical Decision Making I performed the QuickNote portion of this chart. Signed Annabel Michael PA-C. (Annabel Michael) 23 male to ER for evaluation of priapism secondary to trazodone use. Patient's. Patient was cleared here in the ER and he feels well, he can be discharged home (Douglas Piedra) Disposition <Annabel Michael - Last Filed: 05/04/23 14:02> Is patient prescribed a controlled substance at d/c from ED?: No Time of Disposition: 19:00 <Douglas Piedra - Last Filed: 05/13/23 18:48> Clinical Impression: Priapism, Adverse effect of trazodone Disposition: HOME SELF-CARE Condition: Good Instructions (If sedation given, give patient instructions): Trazodone (By mouth), Priapism (ED) Referrals: Robert Healy Jr, DO [Primary Care Provider] - 1-2 days
[2023-05-04 14:05] VITALS: RESP 16
[2023-05-04] MEDS: TERBUTALINE 1 MG/ML VIAL SQ STA ×3 (14:41→16:22)
[2023-05-04 16:07] VITALS: TEMP 97.8
[2023-05-04] MEDS: PSEUDOEPHEDRINE 30 MG TAB PO STA (17:36)
[2023-05-04] MEDS ORDERED: PHENYLEPHRINE 10 MG/ML VIAL SQ STA (18:09)
[2023-05-04] MEDS: NACL SYG INTRA-CAVE PRN (18:44)
[2023-05-04] MEDS: PHENYLEPHRINE INTRA-CAVE PRN (18:44)
[2023-05-04] MEDS: HYDROmorphone 1 MG/ML 1 ML SYRINGE IM STA (18:45)
[2023-05-04 19:49] VITALS: BP 134/86; PULSE 96
== END 2023-05-04 19:33 | disposition home or self-care (01) ==
LOC: EC 13:23
DX: N48.30 Priapism, unspecified (principal); T43.215A Adverse effect of selective serotonin and norepinephrine reuptake inhibitors, initial encounter; J45.909 Unspecified asthma, uncomplicated; F20.9 Schizophrenia, unspecified; Z79.899 Other long term (current) drug therapy
CPT/HCPCS: 99284; 96372 ×3; 54220; J3105; J1170; J2371